=== PATIENT | male | born 1965 | race Caucasian/White ===

== ENCOUNTER → 2020-01-10 | Outpatient (CLI) | payer MEDICAID ==
[~2020-01-10] MED LIST: OMNIPAQUE 350 MG/ML, 100ML BOTTLE ONE
== END | disposition home or self-care (01) ==
LOC: CFH 13:25
PROVIDERS: ATTEND Family Medicine
DX: K76.0 Fatty (change of) liver, not elsewhere classified (principal)
CPT/HCPCS: 74177; Q9967